=== PATIENT | female | born 1990 | race Caucasian/White ===

== ENCOUNTER 2021-04-26 09:24 | Emergency (ER) | payer OTHER ==
[2021-04-26] MEDS ORDERED: Lidocaine 2% Viscous Solution 15 ML UD PO STA (10:07)
[2021-04-26] MEDS ORDERED: Ketorolac 30 MG/ML SDV IM ONE (10:07)
[2021-04-26] MEDS ORDERED: Acetaminophen/HYDROcodone 325-5 MG Tab PO ONE (10:41)
== END 2021-04-26 11:53 | disposition home or self-care (01) ==
LOC: MW.ED 09:24
DX: K04.7 Periapical abscess without sinus (principal); K02.9 Dental caries, unspecified; Z88.0 Allergy status to penicillin
CPT/HCPCS: 41800; 96372; 99282; A9270; J1885

== ENCOUNTER 2022-11-07 10:48 | Emergency (ER) | payer SELFPAY ==
[2022-11-07] MEDS ORDERED: Lidocaine/Epineph/Tetracaine 3 ML Syringe TOP ONE (11:33)
[2022-11-07] MEDS ORDERED: Acetaminophen 325 MG Tab PO ONE (11:33)
[2022-11-07] MEDS ORDERED: Ibuprofen 400 MG Tab PO ONE (11:33)
[2022-11-07] MEDS ORDERED: Diphtheria,Pertussis(Acell),Tetanus Vaccine 0.5 ML Syringe IM ONE (11:33)
[2022-11-07] MEDS ORDERED: Acetaminophen 500 MG Tab PO ONE (11:53)
== END 2022-11-07 12:17 | disposition left against medical advice (07) ==
LOC: MW.ED 10:48
DX: S61.212A Laceration without foreign body of right middle finger without damage to nail, initial encounter (principal); F17.210 Nicotine dependence, cigarettes, uncomplicated; Z23 Encounter for immunization; Z88.0 Allergy status to penicillin; W26.8XXA Contact with other sharp object(s), not elsewhere classified, initial encounter
CPT/HCPCS: 99282; A9270-GY